=== PATIENT | female | born 1960 | race American Indian/Alaskan Native ===

== ENCOUNTER 2021-08-28 14:02 | Emergency (ER) | payer SELFPAY ==
[2021-08-28] MEDS ORDERED: ONDANSETRON 4 MG/2 ML INJ IV ONE (16:09)
[2021-08-28] MEDS ORDERED: SODIUM CHLORIDE 0.9% 1000 ML 1,000 ML IV ONE (16:09)
[2021-08-28] MEDS ORDERED: HYOSCYAMINE SUBL 0.125 MG TAB SL ONE (16:09)
--- NOTE | 2021-08-28 16:13 | Emergency Department Report ---
ED General Adult HPI - General Chief complaint: Nausea/Vomiting/Diarrhea Stated complaint: COVID SYMPTOMS Time Seen by Provider: 08/28/21 16:08 Source: patient Mode of arrival: Ambulatory Limitations: No Limitations - History of Present Illness Initial comments: Patient is a 61-year-old female presents emergency room complaints of nausea, vomiting, diarrhea that began a week ago. She states that she has no appetite and has not been eating solid foods. She states that she is able to tolerate some liquids. She states that she also has a frequent dry cough. Patient states that she tested positive for COVID-19 on 08/23/21. She denies any shortness of breath, chest pain, abdominal pain, body aches, fever. Past medical history of CVA. No allergies to medications. Patient has not been vaccinated for COVID-19. - Related Data Previous Rx's Medication Instructions Recorded Last Taken Type Azithromycin [Zithromax TAB] 250 mg PO QDAY 5 Days #6 tablet 08/28/21 Unknown Rx Benzonatate [Tessalon Perles] 100 mg PO Q8HR PRN #12 capsule 08/28/21 Unknown Rx Hyoscyamine Subl [Levsin Sl 0.125 0.125 mg SL Q6HR PRN #10 tab 08/28/21 Unknown Rx TAB] Promethazine [Phenergan] 25 mg PO Q8HR PRN #12 tab 08/28/21 Unknown Rx Allergies Allergy/AdvReac Type Severity Reaction Status Date / Time No Known Allergies Allergy Verified 08/28/21 17:19 ED Review of Systems ROS: Stated complaint: COVID SYMPTOMS Other details as noted in HPI Comment: All other systems reviewed and negative ED Past Medical Hx - Medications Home Medications: Home Medications Medication Instructions Recorded Confirmed Last Taken Type Azithromycin [Zithromax TAB] 250 mg PO QDAY 5 Days #6 tablet 08/28/21 Unknown Rx Benzonatate [Tessalon Perles] 100 mg PO Q8HR PRN #12 capsule 08/28/21 Unknown Rx Hyoscyamine Subl [Levsin Sl 0.125 0.125 mg SL Q6HR PRN #10 tab 08/28/21 Unknown Rx TAB] Promethazine [Phenergan] 25 mg PO Q8HR PRN #12 tab 08/28/21 Unknown Rx ED Physical Exam - General Limitations: No Limitations General appearance: alert, in no apparent distress - Head Head exam: Present: atraumatic, normocephalic - Eye Eye exam: Present: normal appearance - ENT ENT exam: Present: mucous membranes moist - Respiratory Respiratory exam: Present: normal lung sounds bilaterally. Absent: respiratory distress, wheezes, rales, rhonchi, stridor, chest wall tenderness, accessory muscle use, decreased breath sounds, prolonged expiratory - Cardiovascular Cardiovascular Exam: Present: regular rate, normal rhythm, normal heart sounds. Absent: systolic murmur, diastolic murmur, rubs, gallop - Neurological Exam Neurological exam: Present: alert, oriented X3 - Psychiatric Psychiatric exam: Present: normal affect, normal mood - Skin Skin exam: Present: warm, dry, intact ED Course Vital Signs 08/28/21 08/28/21 14:09 20:03 Temperature 99.3 F 98.9 F Pulse Rate 79 82 Respiratory 15 18 Rate Blood Pressure 125/91 Blood Pressure 136/71 [Right] O2 Sat by Pulse 100 98 Oximetry ED Medical Decision Making - Lab Data Result diagrams: 08/28/21 17:05 08/28/21 17:05 Lab Results 08/28/21 08/28/21 Range/Units 17:05 17:05 WBC 5.9 (4.5-11.0) K/mm3 RBC 5.38 H (3.65-5.03) M/mm3 Hgb 15.3 H (10.1-14.3) gm/dl Hct 47.0 H (30.3-42.9) % MCV 87 (79-97) fl MCH 28 (28-32) pg MCHC 33 (30-34) % RDW 12.7 L (13.2-15.2) % Plt Count 166 (140-440) K/mm3 Lymph % (Auto) 18.5 (13.4-35.0) % [place] % (Auto) 12.9 H (0.0-7.3) % Eos % (Auto) 0.0 (0.0-4.3) % Baso % (Auto) 0.4 (0.0-1.8) % Lymph # (Auto) 1.1 L (1.2-5.4) K/mm3 [place] # (Auto) 0.8 (0.0-0.8) K/mm3 Eos # (Auto) 0.0 (0.0-0.4) K/mm3 Baso # (Auto) 0.0 (0.0-0.1) K/mm3 Seg Neutrophils % 68.2 (40.0-70.0) % Seg Neutrophils # 4.0 (1.8-7.7) K/mm3 Sodium 137 (137-145) mmol/L Potassium 4.9 (3.6-5.0) mmol/L Chloride 97.5 L (98-107) mmol/L Carbon Dioxide 24 (22-30) mmol/L Anion Gap 20 mmol/L BUN 7 (7-17) mg/dL Creatinine 0.9 (0.6-1.2) mg/dL Estimated GFR > 60 ml/min BUN/Creatinine Ratio 8 % Glucose 139 H (65-100) mg/dL Calcium 9.0 (8.4-10.2) mg/dL Total Bilirubin 0.60 (0.1-1.2) mg/dL AST 38 (5-40) units/L ALT 29 (7-56) units/L Alkaline Phosphatase 64 (35-129) units/L Total Protein 8.1 (6.3-8.2) g/dL Albumin 4.0 (3.9-5) g/dL Albumin/Globulin Ratio 1.0 % Lipase 64 H (13-60) units/L Vital Signs 08/28/21 08/28/21 14:09 20:03 Temperature 99.3 F 98.9 F Pulse Rate 79 82 Respiratory 15 18 Rate Blood Pressure 125/91 Blood Pressure 136/71 [Right] O2 Sat by Pulse 100 98 Oximetry - Radiology Data Radiology results: report reviewed Ordering Physician: TRENT CUEVAS Date of Service: 08/28/21 Procedure(s): XR chest routine 2V Accession Number(s): [id number] cc: TRENT CUEVAS Fluoro Time In Minutes: CHEST 2 VIEWS INDICATION / CLINICAL INFORMATION: cough, COVID +. COMPARISON: None available. FINDINGS: SUPPORT DEVICES: None. HEART / MEDIASTINUM: No significant abnormality. LUNGS / PLEURA: Mild patchy bilateral opacities. ADDITIONAL FINDINGS: No significant additional findings. IMPRESSION: 1. Mild patchy bilateral pulmonary opacities. Findings may reflect multifocal pneumonia. Signer Name: Aftab Cash MD Signed: 08/28/2021 4:32 PM Workstation Name: [id number] Transcribed By: SHAHZAD Dictated By: Aftab Cash MD Electronically Authenticated By: Aftab Cash MD Signed Date/Time: 08/28/21 1632 DD/ 1631 TD/TT: - Medical Decision Making Patient is a 61-year-old female presents emergency room complaints of nausea, vomiting, diarrhea that began a week ago. She states that she has no appetite and has not been eating solid foods. She states that she is able to tolerate some liquids. She states that she also has a frequent dry cough. Patient states that she tested positive for COVID-19 on 08/23/21. She denies any shortness of breath, chest pain, abdominal pain, body aches, fever. Past medical history of CVA. No allergies to medications. Patient has not been vaccinated for COVID-19. Vitals are normal. Labs are stable. Chest x-ray 1. Mild patchy bilateral pulmonary opacities. Findings may reflect multifocal pneumonia. These findings likely could represent COVID 19 PNA. Patient given medications on the emergency department with improvement of her symptoms and she was able to tolerate p.o. intake. Discussed all findings with patient. Advised patient please take medication as prescribed. Increase your fluid intake. Follow-up with a primary care doctor for reexamination. Return to emergency room for any new or worsening symptoms. Please self quarantine in accordance with the CDC guidelines. Critical care attestation.: If time is entered above; I have spent that time in minutes in the direct care of this critically ill patient, excluding procedure time. ED Disposition Clinical Impression: Pneumonia due to COVID-19 virus Disposition: HOME / SELF CARE / HOMELESS Is pt being admited?: No Does the pt Need Aspirin: No Condition: Stable Instructions: COVID-19, Bacterial Pneumonia (ED) Additional Instructions: please take medication as prescribed. Increase your fluid intake. Follow-up with a primary care doctor for reexamination. Return to emergency room for any new or worsening symptoms. Please self quarantine in accordance with the CDC guidelines. Prescriptions: Hyoscyamine Subl [Levsin Sl 0.125 TAB] 0.125 mg SL Q6HR PRN #10 tab PRN Reason: abd cramping/diarrhea Promethazine [Phenergan] 25 mg PO Q8HR PRN #12 tab PRN Reason: nausea/vomiting Benzonatate [Tessalon Perles] 100 mg PO Q8HR PRN #12 capsule PRN Reason: cough Azithromycin [Zithromax TAB] 250 mg PO QDAY 5 Days #6 tablet Referrals: PRIMARY CAREMD [Primary Care Provider] - 3-5 Days SAVANNAH FOREMAN MD [Staff Physician] - 3-5 Days [facility] [Provider Group] - 3-5 Days Time of Disposition: 18:27 Print Language: FRENCH
--- NOTE | 2021-08-28 16:36 | XRay Report ---
CHEST 2 VIEWS INDICATION / CLINICAL INFORMATION: cough, COVID +. COMPARISON: None available. FINDINGS: SUPPORT DEVICES: None. HEART / MEDIASTINUM: No significant abnormality. LUNGS / PLEURA: Mild patchy bilateral opacities. ADDITIONAL FINDINGS: No significant additional findings. IMPRESSION: 1. Mild patchy bilateral pulmonary opacities. Findings may reflect multifocal pneumonia. Signer Name: Aftab Cash MD Signed: 08/28/2021 4:32 PM Workstation Name: [id number]
[2021-08-28 17:47] LABS: Basophils % (Auto) 0.4 % (0.0-1.8); Hemoglobin 15.3 gm/dl (10.1-14.3); Lymphocytes # (Auto) 1.1 K/mm3 (1.2-5.4); Lymphocytes % (Auto) 18.5 % (13.4-35.0); Mean Corpuscular HGB Conc 33 % (30-34); Mean Corpuscular Volume 87 fl (79-97); Monocytes # (Auto) 0.8 K/mm3 (0.0-0.8); Monocytes % (Auto) 12.9 % (0.0-7.3); Platelet Count 166 K/mm3 (140-440); Red Blood Count 5.38 M/mm3 (3.65-5.03); Red Cell Distribution Width 12.7 % (13.2-15.2)
[2021-08-28 18:17] LABS: Alanine Aminotransferase 29 units/L (7-56); BUN/Creatinine Ratio 8; Blood Urea Nitrogen 7 mg/dL (7-17); Hemolysis Index 0
[2021-08-28 20:04] VITALS: BP 136/71
== END 2021-08-28 20:03 | disposition home or self-care (01) ==
LOC: ED 14:02
DX: U07.1 COVID-19 (principal); J12.82 Pneumonia due to coronavirus disease 2019
CPT/HCPCS: 36415; 71046; 80053; 83690; 85025; 96361; 96374; 99284; J2405; J7030; Q0162